=== PATIENT | female | born 1980 | race Caucasian/White ===

== ENCOUNTER 2018-09-07 14:49 | Emergency (ER) | payer OTHER ==
[~2018-09-07] VITALS: Ht 172.7 cm; Wt 95.3 kg
--- NOTE | 2018-09-08 13:10 | EKG ---
[facility] [address] [place], [place] [address] Signed Sinus rhythm with marked sinus arrhythmia with short [place] Otherwise normal ECG No previous ECGs available Confirmed by ALEX DAVIS DO ([id number]) on 09/08/2018 1:10:44 PM Electronically Signed By: ALEX DAVIS DO 09/08/18 1310 PATIENT NAME: HARIKA NICHOLAS Electrocardiogram DATE OF : 78 PHYSICIAN: ALEX DAVIS DO REPORT #: [id number] REPORT IS CONFIDENTIAL AND NOT TO BE RELEASED WITHOUT AUTHORIZATION
== END 2018-09-07 16:47 | disposition home or self-care (01) ==
LOC: ED 14:49
DX: F41.9 Anxiety disorder, unspecified (principal); R07.9 Chest pain, unspecified; F17.200 Nicotine dependence, unspecified, uncomplicated; Z88.1 Allergy status to other antibiotic agents; Z88.5 Allergy status to narcotic agent; Z88.8 Allergy status to other drugs, medicaments and biological substances
CPT/HCPCS: 71046; 80053; 83690; 84484; 85025; 99285-25